=== PATIENT | male | born 1945 | race Caucasian/White ===

== ENCOUNTER 2019-10-29 04:43 | Emergency (ER) | payer OTHER, SELFPAY ==
[2019-10-29 04:54] VITALS: BP 170/91; PULSE 67; RESP 20; TEMP 36; O2SAT 100
[2019-10-29 04:57] VITALS: RESP 20
--- NOTE | 2019-10-29 04:58 | ED.GENADUL_ITS ---
Discharge Plan Disposition Patient Disposition: HOME Condition: Stable Discharge Details Chief Complaint: Dizzy/Sync Clinical Impression: Vertigo, Acute right otitis media ED Provider: Daniel Dickson Home Meds and New Rx's Prescriptions: New amoxicillin 500 mg tablet 500 mg PO BID Qty: 20 RF: 0 meclizine 25 mg tablet 25 mg PO TID PRN (Reason: dizziness) Qty: 30 RF: 0 Discharge Instructions Instructions: Vertigo (ED), Ear Infection (ED) Additional Instructions: take your medications as prescribed follow up with your primary care provider this week return to the emergency department for fevers, difficulty breathing, chest pain/pressure or if you feel more ill Medical Decision Making 73 yo male with hx of htn, afib on coumadin, who comes in with cc of feeling dizzy about an hour ago that resolved. He is here visiting his girlfriend and he normally lives in [facility] and forgot his meds whne he came here. He called the pharmacy in [place] yesterday and states the meds were transferred and is going to pick them up today. HE states he woke up and noticed the room was spinning and he had muffled hearing so came here. He states his symptoms of dizziness are gone now. Denies fevers, weakness, chills, chest pain or pressure, no abdominal pain. Denies numbness. Uses crutches chronically from prior achilles injury per patient and states he is at his baseline walking with them. Has no focal motor or sensation deficits, perrl, eomi. Left tm and ear canal normal but right tm is red and bulging which I suspect is the cause of his muffled hearing and dizziness. CN II-XII are intact. Suspect peripheral vertigo as a result of aom. He has no findings on history or exam to suggest central vertigo so do not feel any imaging or lab work indicated. Will d/c on prn meclizine and amoxicillin, stressed importance of taking his other medications today and f/u with pcp with return precautions Differential Diagnosis Differential Diagnosis: aom, vertigo, htn HPI General Mode of arrival: ambulatory . Date/Time Provider Initiated Documentation: 10/29/19 04:48 . Limitations to Documentation: no limitations . Information obtained by: patient . Related Data Home Medications Medication Instructions Recorded Confirmed amoxicillin 500 mg PO BID #20 tab 10/29/19 meclizine 25 mg PO TID PRN #30 tab 10/29/19 Previous Rx's Medication Instructions Recorded amoxicillin 500 mg PO BID #20 tab 10/29/19 meclizine 25 mg PO TID PRN #30 tab 10/29/19 General Stated Complaint: Dizzy/Sync GORDON: 4 Review of Systems All systems reviewed & are unremarkable except as noted in HPI and below Constitutional Constitutional: Denies chills, Denies fever(s) and Denies weakness Cardiovascular Cardiovascular: Denies chest pain and Denies dyspnea Respiratory Respiratory: Denies cough and Denies dyspnea Gastrointestinal Gastrointestinal: Denies abdominal pain, Denies nausea and Denies vomiting Musculoskeletal Musculoskeletal: Denies joint swelling Neurologic Neurologic: Denies weakness Psychiatric Psychiatric: Denies depression PFS Social History Smoking/Tobacco Use Status: Never Alcohol Intake: current Alcohol Intake frequency: a few times a month Alcohol type: other Drug use: Never Substance use type: does not use Do you feel safe at home: Yes Do you feel safe in your relationship?: Yes Exam Const General: no acute distress Orientation: alert HENMT Head: normal to inspection Ears: external ears normal General nose exam: external nose normal Mouth: moist mucous membranes Eyes General: appearance normal, both eyes and all related structures Neck Neck: normal visual inspection Resp Effort & Inspection: normal respiratory effort and able to speak in complete sentences Cardio Rate: regular rate Skin General skin exam: no rashes or lesions noted Neuro General: patient alert and patient oriented x3 Extrem General: normal to inspection Psych Mental Status: mental status grossly normal Course Vital Signs Vital signs: Vital Signs Temperature 36.0 C L 10/29/19 04:54 Pulse 67 10/29/19 04:54 Respiratory Rate 10/29/19 04:54 Blood Pressure 170/91 H 10/29/19 04:54 Pulse Oximetry 100 10/29/19 04:54 Temperature 36.0 C L 10/29/19 04:54 Temperature Source Tympanic 10/29/19 04:54 Pulse 67 10/29/19 04:54 Respiratory Rate 20 10/29/19 04:54 Blood Pressure 170/91 H 10/29/19 04:54 Pulse Oximetry 100 10/29/19 04:54 Oxygen Delivery Method Room Air 10/29/19 04:54 Oxygen Flow Rate 0 10/29/19 04:54 Pain Level 0 10/29/19 04:54
== END 2019-10-29 05:10 | disposition home or self-care (01) ==
LOC: ER 05:28
PROVIDERS: Emergency Provider Emergency Medicine
DX: H66.91 Otitis media, unspecified, right ear (principal); R42 Dizziness and giddiness; I10 Essential (primary) hypertension; Z79.01 Long term (current) use of anticoagulants; I48.91 Unspecified atrial fibrillation
CPT/HCPCS: 99283